=== PATIENT | female | born 1990 | race Caucasian/White ===

== ENCOUNTER 2018-03-03 22:49 | Day surgery (SDC) | payer BC ==
[2018-03-03 23:31] VITALS: BP 113/74; TEMP 97.9
[2018-03-03] MEDS ORDERED: Promethazine HCl 25 MG/ML VIAL IM/IV PRN (23:49)
--- NOTE | 2018-03-04 01:02 | PRG ---
DATE OF SERVICE: 03/03/2018 OB ED NOTE TIME OF SERVICE: 2345 hours. PRESENTING COMPLAINT: Nausea at 39 weeks' gestation. HISTORY OF PRESENT ILLNESS: The patient is a 27-year-old 4, para 2, sees Dr. Gomez, she is s cheduled for repeat in 2 days. She presents complaining of vomiting earlier today and then on the way up to the hospital, she reports feeling dehydrated. She reports an active fetus. No rup ture of membranes. OB AND INSOLE AND OUTSOLE SPLITTER HISTORY: x2. Primary was by Dr. Ramos, second one was by Dr. Gomez. She had a miscarriage in 2017. Blood type is A positive, antibody negative, Pap negative, rubella immune, V DRL nonreactive, hepatitis B, GC chlamydia negative, group B Strep negative. PAST MEDICAL HISTORY: None. PAST SURGICAL HISTORY: C-sections, L5-S1 fusion, and tonsillectomy. SOCIAL HISTORY: Negative tobacco use. Denies alcohol or IV drug abuse. FAMILY HISTORY: Noncontributory. REVIEW OF SYSTEMS: Noncontributory. PHYSICAL EXAMINATION: GENERAL: White female. VITAL SIGNS: Temperature 98.7, pulse 85, respirations 18, blood pressure 116/72. HEENT: Within normal limits. LUNGS: Clear to auscultation bilaterally. HEART: Regular rhythm. ABDOMEN: Soft, nontender. No palpable contractions. FHTs 130s to 140s. PELVIC: Vulva without lesions. Vagina without discharge. Cervix fingertip long and high. EXTREMITIES: Without clubbing, cyanosis, or edema. heart rate tracing 20-minute strip was achieved with a baseline of 130s to 140s, positive accel erations, no decelerations, category 1. IMPRESSION: Emesis x2 episodes at term without evidence of hemolysis elevated liver enzymes low plat elets syndrome, preeclampsia, active labor, suspect secondary to dehydration as well as fundal compre ssion on the stomach. PLAN: Discussed with patient options. Offered IV hydration, patient declined and desired to go home , we will give Phenergan IM x1. ER precautions. Schedule in 2 days.
[2018-03-05] MEDS ORDERED: Ketorolac Tromethamine 30 MG/ML VIAL ONE (13:06)
[2018-03-05] MEDS ORDERED: PHENYLEPHRINE-NS 100 MCG/ML 10 ML SYRINGE ONE (13:06)
[2018-03-05] MEDS ORDERED: Ondansetron HCl/PF 4 MG/2 ML Vial ONE (13:06)
== END 2018-03-04 00:23 | disposition home or self-care (01) ==
LOC: L&D/OP 22:49
PROVIDERS: ATTEND Obstetrics & Gynecology
DX: O21.2 Late vomiting of pregnancy (principal); Z3A.39 39 weeks gestation of pregnancy; Z79.899 Other long term (current) drug therapy; Z98.1 Arthrodesis status
CPT/HCPCS: 96372; 99282

== ENCOUNTER 2018-03-05 05:40 | Inpatient (IN) | payer BC ==
[~2018-03-05 05:40] MED LIST: Bicitra 30 ML UDCUP PO SCH; Butorphanol Tartrate 1 MG/ML VIAL SLOW IVP PRN; Ondansetron HCl/PF 4 MG/2 ML Vial IVP PRN; Promethazine HCl 25 MG/ML VIAL IM PRN
[2018-03-05] MEDS: Lactated Ringer's 1,000 ML IV SCH ×3 (06:09→07:20)
[2018-03-05] MEDS ORDERED: Butorphanol Tartrate 1 MG/ML VIAL SLOW IVP PRN (06:12)
[2018-03-05] MEDS ORDERED: Bicitra 30 ML UDCUP PO SCH (06:12)
[2018-03-05] MEDS ORDERED: CEFAZOLIN/Water 2 GM/20 ML SYRINGE SLOW IVP SCH ×2 (06:12→07:00)
[2018-03-05] MEDS ORDERED: Promethazine HCl 25 MG/ML VIAL IM PRN ×2 (06:12→07:59)
[2018-03-05] MEDS ORDERED: Docusate 100 MG CAP PO PRN (06:12)
[2018-03-05] MEDS ORDERED: Lactated Ringer's 1,000 ML IV SCH ×2 (06:12→09:30)
[2018-03-05] MEDS ORDERED: Ondansetron HCl/PF 4 MG/2 ML Vial IVP PRN ×4 (06:12→09:16)
[2018-03-05 06:27] LABS: Hemoglobin 12.8 g/dL (12.0-16.0); Mean Corpuscular Hemoglobin 28.4 pg (27.0-31.0); Mean Corpuscular Volume 83.6 fL (78.0-98.0); Mean Platelet Volume 8.3 fL (7.4-10.4); Platelet Count 183 thou/uL (130-400); RBC Distribution Width 12.3 % (11.5-14.5); White Blood Cell (WBC) Count 10.3 thou/uL (4.8-10.8)
[2018-03-05] MEDS ORDERED: Morphine PF 1 MG/ML SYR ONE (06:58)
[2018-03-05] MEDS ORDERED: PHENYLEPHRINE-NS 100 MCG/ML 10 ML SYRINGE ONE (06:59)
[2018-03-05] MEDS ORDERED: Oxytocin 10 UNITS/ML VIAL ONE ×2 (06:59→08:01)
[2018-03-05] MEDS ORDERED: Ondansetron HCl/PF 4 MG/2 ML Vial ONE (06:59)
[2018-03-05] MEDS ORDERED: Bupivacaine 0.75% W/DEXTROSE 8.25% 2 ML AMP ONE (06:59)
[2018-03-05] MEDS ORDERED: Lidocaine 1% PF 5 ML VIAL ONE (07:02)
[2018-03-05 07:04] LABS: HBSAg Index 0.28 S/CO (0-0.99); Hep B Surf Ag Non-Reactive S/CO (NonReactive); Syphilis Antibody Nonreactive (Nonreactive); Syphilis Antibody Index 0.04 S/CO (<1.00 Non-Reactive)
[2018-03-05] MEDS ORDERED: Eucerin (Mineral Oil/Petrolatum,White) 30 gm Jar TOP PRN (07:59)
[2018-03-05] MEDS ORDERED: Promethazine HCl 25 MG SUPP PR PRN (07:59)
[2018-03-05] MEDS ORDERED: diphenhydrAMINE 50 MG/ML VIAL IVP PRN (07:59)
[2018-03-05] MEDS ORDERED: HYDROmorphone 2 MG/ML VIAL SLOW IVP PRN (07:59)
[2018-03-05] MEDS ORDERED: Naloxone HCl 0.4 mg/ml Vial IV PRN (07:59)
[2018-03-05] MEDS ORDERED: Naloxone HCl 0.4 mg/ml Vial IVP PRN ×2 (07:59)
[2018-03-05] MEDS ORDERED: Ketorolac Tromethamine 30 MG/ML VIAL IVP SCH (08:00)
[2018-03-05] MEDS ORDERED: Communication Order-Pharmacy FS SCH (08:00)
[2018-03-05] MEDS ORDERED: Fentanyl 100 MCG/2 ML VIAL ONE ×2 (08:08→08:26)
[2018-03-05] MEDS ORDERED: Midazolam HCl 2 mg/2 ml Vial ONE ×2 (08:14→08:27)
[2018-03-05] MEDS ORDERED: Ketorolac Tromethamine 30 MG/ML VIAL ONE (08:33)
[2018-03-05] MEDS ORDERED: HYDROcodone/Acetaminophen 5/325 mg Tablet PO PRN (09:16)
[2018-03-05] MEDS ORDERED: Meperidine HCl/PF 25 MG/ML VIAL IM PRN (09:16)
[2018-03-05] MEDS ORDERED: Bisacodyl 10 MG SUPP PR PRN (09:16)
[2018-03-05] MEDS ORDERED: diphenhydrAMINE 25 MG CAP PO PRN (09:16)
[2018-03-05] MEDS ORDERED: Lanolin Ointment 7 GM TUBE TOP PRN (09:16)
[2018-03-05] MEDS ORDERED: Acetaminophen 325 MG TAB PO PRN (09:16)
[2018-03-05] MEDS ORDERED: Simethicone Chewable 80 MG TAB PO PRN (09:16)
[2018-03-05] MEDS ORDERED: Zolpidem Tartrate 5 MG TAB PO PRN (09:16)
[2018-03-05] MEDS ORDERED: NS / Oxytocin 40 units/1000ml 1,000 ML IV SCH (09:30)
[2018-03-05] MEDS: Meperidine HCl/PF 25 MG/ML VIAL SLOW IVP PRN ×2 (09:31→10:35)
[2018-03-05] MEDS ORDERED: Meperidine HCl/PF 25 MG/ML VIAL ONE (10:32)
[2018-03-05] MEDS ORDERED: Fentanyl 100 MCG/2 ML VIAL SLOW IVP SCH (12:30)
[2018-03-05] MEDS ORDERED: CEFAZOLIN 2 GM in Sodium Chloride 0.9% 100 ML IVPB SCH (14:00)
[2018-03-05] MEDS: Ketorolac Tromethamine 30 MG/ML VIAL IVP PRN ×2 (14:30→20:21)
[2018-03-05] MEDS: CEFAZOLIN/Water 2 GM/20 ML SYRINGE SLOW IVP SCH ×2 (15:10→23:14)
[2018-03-05] MEDS: Adacel (T-DAP) 0.5 ML VIAL IM ONE (15:27)
[2018-03-05] MEDS: Ibuprofen 800 MG TAB PO SCH ×2 (15:28→22:44)
[2018-03-05] MEDS: HYDROcodone/Acetaminophen 5/325 mg Tablet PO PRN (21:17)
[2018-03-05] MEDS: Docusate Calcium (SURFAK) 240 MG CAP PO SCH (22:43)
[2018-03-05] MEDS: Ferrous Sulfate 325 MG TAB PO SCH (22:43)
[2018-03-06] MEDS: HYDROcodone/Acetaminophen 5/325 mg Tablet PO PRN ×5 (00:54→20:20)
[2018-03-06 06:08] LABS: Mean Corpuscular HGB CONC 32.8 g/dL (32.0-36.0); Mean Corpuscular Volume 85.4 fL (78.0-98.0); Mean Platelet Volume 8.3 fL (7.4-10.4); Platelet Count 155 thou/uL (130-400); RBC Distribution Width 12.3 % (11.5-14.5); Red Blood Cell (RBC) Count 3.95 mill/uL (4.20-5.40); White Blood Cell (WBC) Count 7.7 thou/uL (4.8-10.8)
[2018-03-06] MEDS: Prenatal Vitamin 1 TAB PO SCH (07:52)
[2018-03-06] MEDS: Docusate Calcium (SURFAK) 240 MG CAP PO SCH ×2 (07:52→20:20)
[2018-03-06] MEDS: Ferrous Sulfate 325 MG TAB PO SCH ×2 (08:22→15:05)
[2018-03-06] MEDS: Ibuprofen 800 MG TAB PO SCH ×2 (13:38→21:26)
--- NOTE | 2018-03-07 00:05 | OP ---
DATE OF PROCEDURE: 03/05/2018 ATTENDING STAFF PHYSICIAN: Armand Gomez M.D. SURGEON: Armand Gomez M.D. TRAINING LEAD SURGEON: Allen Oakley MD PREOPERATIVE DIAGNOSES: 1. Term intrauterine at 39 weeks. 2. Prior section x2. 3. Umbilical hernia. POSTOPERATIVE DIAGNOSES: 1. Term intrauterine at 39 weeks. 2. Prior section x2. 3. Umbilical hernia. PROCEDURES: 1. Repeat low transverse section. 2. Umbilical hernia repair. ANESTHESIA: Spinal catheterization. FINDINGS: 1. A 1.5 cm umbilical hernia superior to the umbilicus just below the patient's piercing site. 2. Vigorous female , 7 pounds 12 ounces, Apgars 8 and 9. 3. Normal uterus, tubes, and ovaries. 4. Minimal scarring and adhesion secondary to previous adhesion prevention measures. SPECIMENS REMOVED: Cord blood. ESTIMATED BLOOD LOSS: 500 mL. PROCEDURE IN DETAIL: After thorough consent and counseling, Ms. Mason was taken to the operating room and adequate level of anesthesia was obtained via spinal catheterization. The patient was prepped a nd draped in the usual fashion for abdominal surgery. A Medeiros was placed in the bladder, which was d rained of clear urine. Attention was then turned to performing the repeat low transverse se ction. A Pfannenstiel incision was made and carried sharply to the fascia, which was also sharply incised. The midline was identified and the rectus muscles were retracted laterally. The abdominal peritoneal cavity was entered with usual safeguards carried out. A retractor was placed and a bladder flap was created on the vesicouterine peritoneum. A bladder blade was then placed. A low transverse incisio n was made on the well-developed lower uterine segment. Upon entering the amniotic sac, a copious am ount of clear amniotic fluid was visualized. The was noted to be vertex presentation in the o cciput anterior position, still high in the pelvis. Head was delivered, baby was bulb suctioned on t he abdomen. Shoulders and body were then delivered in an atraumatic fashion. The cord was doubly cl amped and cut, the infant was handed to the pediatric team in attendance for the delivery. The infan t was a vigorous viable female weighing 7 pounds 12 ounces with Apgars of 8 and 9 obtained at one and five minutes respectively. Cord blood was obtained. The placenta was manually removed from the [place]. The uterus was exteriorized and good tone was noted. The uterine cavity was cleared of any rem aining clot and fluid. The low transverse incision was closed with a running locking ligature of #1 chromic. A second-imbricating layer was placed to facilitate strength and hemostasis. The vesicoute rine peritoneum was reapproximated to the lower segment with a running ligature of 3-0 Monocryl sutur e. Good tone and hemostasis was appreciated. The uterus, fallopian tubes, and ovaries were inspecte d and otherwise noted to be normal. No pathology was identified. The posterior cul-de-sac was clear ed of clot and fluid. The uterus was returned to the abdomen. The incision was carefully inspected and noted to be hemostatic. Attention was then turned to performing umbilical hernia repair. The fascia was lifted up with the director surgical and the umbilical plate was identified. Just patel perior to the umbilical plate was a small umbilical hernia measuring 1-2 cm. The peritoneum was mariza jens from the hernia sac. The umbilical hernia was then closed with four [id number] ligatures of 0 silk suture in a crosshatch manner. There was good closure to the hernia and good fascial reappro ximation. The peritoneum was then reapproximated over the hernia repair with four anxkav-ii-foedy li gatures of 2-0 chromic suture. Good hemostasis was noted. Lap, sponge, and needle counts were corre ct. The peritoneum was then closed with a running ligature of 2-0 Vicryl suture. The rectus muscles were reapproximated in the midline with interrupted ligatures of 2-0 Vicryl suture. The fascia was then closed with 2 ligatures of 0 Vicryl suture, which were tied in the midline. Good fascial integr ity was appreciated. The incision was irrigated with copious amount of warm normal saline. The subc utaneous tissue was then closed with interrupted ligatures of 2-0 plain suture. The skin was closed with subcuticular stitch of 4-0 Monocryl. Lap, sponge, and needle counts were correct x3. Estimated blood loss during the surgical procedure was approximately 500-600 mL(QBR 430 mL). The patient was returned to the recovery room in good condition. Immediately following surgery, the patient's family made aware of the surgical procedure and operative findings. Questions answered to their satisfaction. For prophylactic measures, the patient will be given 2 additional doses of antib iotics secondary to the extreme ambient temperature in the OR and profuse sweating. This was discuss ed with team leaders of women services.
[2018-03-07] MEDS: HYDROcodone/Acetaminophen 5/325 mg Tablet PO PRN ×3 (00:31→08:40)
[2018-03-07] MEDS: Ibuprofen 800 MG TAB PO SCH (04:33)
[2018-03-07] MEDS: Docusate Calcium (SURFAK) 240 MG CAP PO SCH (07:55)
[2018-03-07] MEDS: Prenatal Vitamin 1 TAB PO SCH (07:55)
[2018-03-07] MEDS: Ferrous Sulfate 325 MG TAB PO SCH (07:55)
[2018-03-07 08:40] VITALS: TEMP 98
[2018-03-07 09:16] VITALS: BP 115/67
[2018-03-07] MEDS: Adacel (T-DAP) 0.5 ML VIAL IM ONE (11:12)
== END 2018-03-07 12:50 | disposition home or self-care (01) | DRG 766 ==
LOC: L&D 05:40 → 3SW 12:22
PROVIDERS: ADMIT Obstetrics & Gynecology; ATTEND Obstetrics & Gynecology
PROC: 10D00Z1 Extraction of Products of Conception, Low, Open Approach (ICD-10-PCS; principal; 2018-03-05)
PROC: 0WQF0ZZ Repair Abdominal Wall, Open Approach (ICD-10-PCS; 2018-03-05)
DX: O34.211 Maternal care for low transverse scar from previous cesarean delivery (principal); Z3A.39 39 weeks gestation of pregnancy; Z37.0 Single live birth; O75.89 Other specified complications of labor and delivery; K42.9 Umbilical hernia without obstruction or gangrene
CPT/HCPCS: 36415; 51702; 85027; 86780; 86850; 86900; 86901; 87340; 90715; A4216; J0690; J1885; J2001; J2175; J2250; J2270; J2274; J2405; J2590; J3010; J3490; J7050

== ENCOUNTER 2019-12-14 07:04 | Outpatient (CLI) | payer BC, OTHER ==
[2019-12-14 16:06] LABS: #Basophils 0.1 thou/uL (0.0-0.2); #Eosinphils 0.4 thou/uL (0.0-0.7); #Lymphocytes 1.8 thou/uL (1.20-3.40); #Monocytes 0.5 thou/uL (0.11-0.59); #Neutrophils 7.9 thou/uL (1.40-6.50); %Basophils 0.7 % (0.0-1.0); %Eosinophils 3.9 % (0.0-10.0); %Lymphocytes 17.1 % (21.0-51.0); %Monocytes 4.8 % (0.0-10.0); %Neutrophils 73.5 % (42.0-75.0); Hemoglobin 14.6 g/dL (12.0-16.0); Mean Corpuscular HGB CONC 31.5 g/dL (32.0-36.0); Mean Corpuscular Hemoglobin 29.3 pg (27.0-31.0); Mean Corpuscular Volume 93.1 fL (78.0-98.0); Mean Platelet Volume 7.5 fL (7.4-10.4); Platelet Count 330 thou/uL (130-400); RBC Distribution Width 11.9 % (11.5-14.5); Red Blood Cell (RBC) Count 4.97 mill/uL (4.20-5.40); White Blood Cell (WBC) Count 10.7 thou/uL (4.8-10.8)
[2019-12-14 16:13] LABS: BHCG - Serum Negative (NEGATIVE); Pregs Control Background? CLEAR/WHITE (CLR/WHITE); Pregs Control Bar Appear? YES (CONTROL BAR)
[2019-12-14 16:24] LABS: Anion Gap 16 mmol/L (10-20); BUN (Urea Nitrogen) 14 mg/dL (7.0-18.7); Calc. Creatinine Clearance 0 mL/min (70-130); Calcium 9.6 mg/dL (7.8-10.44); Carbon Dioxide 24 mmol/L (22-29); Chloride 103 mmol/L (98-107); Estimated GFR-MDRD 80; Glucose 103 mg/dL (70-105); Potassium 4.2 mmol/L (3.5-5.1); Sodium 139 mmol/L (136-145)
[2019-12-15 11:23] LABS: SARS-CoV-2 MS2 Positive; SARS-CoV-2 N Gene Negative; SARS-CoV-2 S Gene Negative; SARS-CoV-2 orf1ab Negative
== END 2019-12-14 07:05 | disposition home or self-care (01) ==
LOC: LABBT 07:04
PROVIDERS: ATTEND Surgery
DX: Z01.812 Encounter for preprocedural laboratory examination (principal); Z11.59 Encounter for screening for other viral diseases; K43.2 Incisional hernia without obstruction or gangrene
CPT/HCPCS: 80048; 84703; 85025; 87635; U0003

== ENCOUNTER 2019-12-17 05:59 | Day surgery (SDC) | payer BC ==
[2019-12-14 14:51] VITALS: BMI 26.6
[2019-12-17] MEDS ORDERED: Fentanyl 100 MCG/2 ML VIAL ONE ×3 (06:35→09:01)
[2019-12-17] MEDS ORDERED: Midazolam HCl 2 mg/2 ml Vial ONE (06:35)
[2019-12-17] MEDS ORDERED: Lidocaine 1% w/Epinephrine 1:100K 20 ML VIAL ONE (06:46)
[2019-12-17] MEDS ORDERED: Bupivacaine 0.25% HCL 30 ML VIAL ONE (06:46)
[2019-12-17] MEDS ORDERED: Meperidine HCl/PF 25 MG/ML VIAL ONE (08:33)
[2019-12-17] MEDS ORDERED: HYDROcodone/Acetaminophen 5/325 mg Tablet ONE (10:10)
[2019-12-17] MEDS ORDERED: PROPOFOL 200 MG/20 ML VIAL ONE (12:37)
[2019-12-17] MEDS ORDERED: Ondansetron PF 4 MG/2 ML Vial ONE (12:37)
[2019-12-17] MEDS ORDERED: Lidocaine 1% PF 5 ML VIAL ONE (12:37)
[2019-12-17] MEDS ORDERED: Rocuronium Bromide 10 MG/ML (10ML VIAL) ONE (12:37)
[2019-12-17] MEDS ORDERED: Dexamethasone 20 MG/5 ML VIAL ONE (12:37)
[2019-12-17] MEDS ORDERED: Ketorolac Tromethamine 30 MG/ML VIAL ONE (12:37)
[2019-12-17] MEDS ORDERED: Glycopyrrolate 0.2 MG/ML 5 ML SYRINGE ONE (12:37)
--- NOTE | 2019-12-17 14:23 | OP ---
DATE OF PROCEDURE: 12/17/2019 PREOPERATIVE DIAGNOSIS: Incisional hernia. POSTOPERATIVE DIAGNOSIS: Incisional hernia. PROCEDURE PERFORMED: [place] laparoscopic incisional hernia repair with mesh, Ventralex ST 8 cm. ANESTHESIA: General. ESTIMATED BLOOD LOSS: Minimal. COMPLICATIONS: None. SPECIMEN: None. FINDINGS: Incisional hernia. DESCRIPTION OF PROCEDURE: The patient was taken to operating room and laid supine on the table. After general anesthetic was obtained, a Medeiros was placed. The abdomen was shaved, prepped, and draped in a sterile fashion. Left subcostal 5 mm Optiview trocar was placed in usual fashion. High-flow pneumoperitoneum was obtained. Left and right abdominal 8 mm robotic trocars were placed. The peritoneum was taken down in the area of the umbilicus, exposing the incisional hernia. There was a small defect in the epigastric area as well. The falciform ligament was taken down without bleeding. The posterior fascia was fully exposed and all fats removed from the umbilical defect. 0 V-Loc suture was used to close the fascial defect primarily. The needle was then used to hold the Ventralex ST mesh up against the posterior abdominal wall. The Ventralex ST mesh, exposed mesh was placed up against the posterior fascia, nonadherent border left against the abdominal viscera. The Ventralex ST mesh was sewn via 2-0 V-Loc to the posterior fascia circumferentially. All needles were removed from the abdomen and accounted for. All port sites infiltrated using local anesthetic. All ports were removed under camera visualization. Pneumoperitoneum was let down. 4-0 Monocryl and Dermabond were used to closed all skin incisions. The patient was sent to Recovery in stable condition. All instrument counts, needle counts, lap counts were correct. Job ID: [id number]
== END 2019-12-17 10:45 | disposition home or self-care (01) ==
LOC: SDC 05:59
PROVIDERS: ATTEND Surgery
PROC: 0WUF4JZ Supplement Abdominal Wall with Synthetic Substitute, Percutaneous Endoscopic Approach (ICD-10-PCS; principal; 2019-12-17)
DX: K43.2 Incisional hernia without obstruction or gangrene (principal); Z79.899 Other long term (current) drug therapy; Z98.1 Arthrodesis status
CPT/HCPCS: C1781; J0690; J1100; J1885; J2001; J2175; J2250; J2405; J2704; J3010; S0020